=== PATIENT | male | born 1995 | race Caucasian/White ===

== ENCOUNTER 2021-06-28 10:25 | Emergency (ER) | payer BC ==
[2021-06-28] MEDS ORDERED: MAG HYDROX/AL HYDROX/SIMETH 30 ML UDC PO STA (10:59)
[2021-06-28] MEDS ORDERED: LIDOCAINE VISCOUS 2% 15 ML UDC MM STA (10:59)
[2021-06-28] MEDS ORDERED: SUCRALFATE 1 GM/10 ML UDC PO STA (10:59)
--- NOTE | 2021-06-28 11:03 | ED Physician Documentation ---
PD HPI ABD PAIN - Stated complaint Stated Complaint: ABD PX - Chief complaint Chief Complaint: Abd Pain - History obtained from History obtained from: Patient - History of Present Illness Timing - onset: Enter time (1000), Yesterday Timing - duration: Days (1) Timing - details: Abrupt onset, Still present Quality: Sharp, Pain Location: RUQ, Epigastric Improved by: Laying still Worsened by: Moving Associated symptoms: Nausea. No: Vomiting Similar symptoms before: Has not had sx before Recently seen: Not recently seen - Additional information Additional information: Previously well 25-year-old Felipe Bowser has developed epigastric pain beginning yesterday morning pain that he felt started in the right upper quadrant migrated to the epigastrium and is coming in waves. He reports a feeling of glass in his stomach. He has sharp periodic pains and feels that he has some improvement if he is laying still feels that if he does anything else the pain will be worse. He has had some nausea he has not had vomiting he was able to eat yesterday. He denies any use of alcohol or anti-inflammatories. Review of Systems Constitutional: denies: Fever Eyes: denies: Decreased vision Ears: denies: Ear pain Nose: denies: Congestion Throat: denies: Sore throat Cardiac: denies: Chest pain / pressure, Palpitations Respiratory: denies: Dyspnea, Cough GI: reports: Abdominal Pain, Nausea. denies: Vomiting, Constipation, Diarrhea : denies: Dysuria, Frequency Skin: denies: Rash Musculoskeletal: denies: Neck pain, Back pain, Extremity pain PD PAST MEDICAL HISTORY - Present Medications Home Medications: Ambulatory Orders Medication Instructions Recorded Confirmed Sucralfate [Carafate] 1 gm PO ACHS #60 tablet 06/28/21 - Allergies Allergies/Adverse Reactions: Allergies Allergy/AdvReac Type Severity Reaction Status Date / Time No Known Drug Allergies Allergy Verified 06/28/21 10:44 PD ED PE NORMAL - Vitals Vital signs reviewed: Yes - General General: Alert and oriented X 3, Well developed/nourished, Other (The patient will have episode of pain where he will become diaphoretic and in obvious distress.) - HEENT HEENT: Atraumatic, PERRL, EOMI - Neck Neck: Supple, no meningeal sign, No bony TTP - Cardiac Cardiac: RRR, No murmur - Respiratory Respiratory: No respiratory distress, Clear bilaterally - Abdomen Abdomen: Normal bowel sounds, Soft, Non tender, Non distended, No organomegaly - Back Back: No CVA TTP, No spinal TTP - Derm Derm: Normal color, Warm and dry, No rash - Extremities Extremities: No deformity, No edema - Neuro Neuro: Alert and oriented X 3, 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, No motor deficit, No sensory deficit, Normal speech Eye Opening: Spontaneous Motor: Obeys Commands Verbal: Oriented GCS Score: 15 - Psych Psych: Normal mood, Normal affect Results - Vitals Vitals: Vital Signs - 24 hr 06/28/21 06/28/21 10:40 11:10 Temperature 36.1 C L Heart Rate 85 72 Respiratory 20 12 Rate Blood Pressure 110/88 H 117/70 O2 Saturation 98 97 Oxygen O2 Source Room air - Labs Labs: Laboratory Tests 06/28/21 06/28/21 10:55 10:55 WBC 9.4 RBC 5.36 Hgb 15.3 Hct 46.3 MCV 86.4 MCH 28.5 MCHC 33.0 RDW 12.7 Plt Count 304 MPV 9.9 Neut # (Auto) 5.9 Lymph # (Auto) 2.7 Luce # (Auto) 0.7 Eos # (Auto) 0.1 Baso # (Auto) 0.0 Absolute Nucleated RBC 0.00 Nucleated RBC % 0.0 Sodium 139 Potassium 4.0 Chloride 104 Carbon Dioxide 24 Anion Gap 11.0 BUN 12 Creatinine 0.9 Estimated GFR (MDRD) 104 Glucose 112 H Calcium 9.4 Total Bilirubin 0.7 AST 34 ALT 67 H Alkaline Phosphatase 73 Total Protein 7.8 Albumin 4.5 Globulin 3.3 Albumin/Globulin Ratio 1.4 Lipase 36 - Rads (name of study) ab/pel w/o Radiology: Prelim report reviewed (Impression: No acute CT findings in the abdomen pelvis. Normal appendix. No evidence of appendicitis. No renal calculi, obstructive uropathy or hydronephrosis.), EMP read indepedently, See rad report Procedures - Bedside sono Bedside sono by EMP: With use of bedside ultrasound the right kidney is imaged it is sonographically nontender there is no obvious hydronephrosis. The gallbladder is grossly examined it is without gallbladder wall thickening there are no obvious stones and it is sonographically nontender. PD MEDICAL DECISION MAKING - ED course Complexity details: reviewed results, re-evaluated patient, considered differential, d/w patient, d/w family ED course: 25-year-old Felipe Bowser presents to the emergency department with a distressing sensation of glass in his stomach. He has prompt relief of this sensation with the use of viscous lidocaine and Mylanta and Carafate. He has lasting improvement. We have diagnosed him with gastritis after checking his blood counts electrolytes and a CT scan of the abdomen and pelvis. I discussed with the patient the empiric treatment associated with this including reducing acid and applying Carafate. I have asked the patient to follow-up should he have recurrence of his symptoms. Departure - Departure Disposition: Home, Self Care Clinical Impression: Gastritis Qualifiers: Gastritis type: unspecified gastritis Chronicity: acute Gastritis bleeding: without bleeding Qualified Code(s): K29.00 - Acute gastritis without bleeding Condition: Stable Instructions: ED PUD Vs Gastritis Follow-Up: [facility] [Provider Group] Prescriptions: Sucralfate [Carafate] 1 gm PO ACHS #60 tablet Comments: Felipe, today it looks like you have an acute gastritis or an inflammation to the stomach lining. The recommendation for this is to take a medication such as Pepcid AC or Nexium daily for the next 2 weeks. In addition of this I have E scribed some Carafate to the community pharmacy here in [place]. The expectation is that you will have improvement in your pain within hours of taking the medication to reduce the acid and this should be lasting. When you I have completed the course if you have a recurrence of your symptoms a follow-up with your primary care doctor is in order to establish contact with the surgeon or tug boat captain for a look inside of your stomach.
[2021-06-28 11:11] LABS: BASOPHILS % (AUTO) 0.2 %; EOSINOPHILS # (AUTO) 0.1 10^3/uL (0.0-0.7); EOSINOPHILS % (AUTO) 1.2 %; HCT - HEMATOCRIT 46.3 % (42.0-52.0); HGB - HEMOGLOBIN 15.3 g/dL (14.0-18.0); LYMPHOCYTES # (AUTO) 2.7 10^3/uL (1.5-3.5); LYMPHOCYTES % (AUTO) 28.7 %; MEAN CORPUSCULAR HEMOGLOBIN 28.5 pg (27.0-31.0); MEAN CORPUSCULAR VOLUME 86.4 fL (80.0-94.0); MEAN PLATELET VOLUME 9.9 fL (7.4-11.4); MONOCYTES # (AUTO) 0.7 10^3/uL (0.0-1.0); MONOCYTES % (AUTO) 7.4 %; NEUTROPHILS # (AUTO) 5.9 10^3/uL (1.5-6.6); NEUTROPHILS % (AUTO) 62.2 %; PLT - PLATELET COUNT 304 10^3/uL (130-450); RED BLOOD COUNT 5.36 10^6/uL (4.70-6.10); RED CELL DISTRIBUTION WIDTH 12.7 % (12.0-15.0); WHITE BLOOD COUNT 9.4 x10^3/uL (4.8-10.8)
[2021-06-28 11:13] VITALS: BP 117/70
[2021-06-28 11:23] LABS: ALBUMIN 4.5 g/dL (3.2-5.5); ALBUMIN/GLOBULIN RATIO 1.4 (1.0-2.2); BILIRUBIN,TOTAL 0.7 mg/dL (0.2-1.0); CALCIUM 9.4 mg/dL (8.5-10.3); CREATININE 0.9 mg/dL (0.6-1.2); TOTAL PROTEIN 7.8 g/dL (6.7-8.2)
--- NOTE | 2021-06-28 11:45 | CT Report ---
PROCEDURE: CT abdomen and pelvis without contrast INDICATIONS: R flank pain TECHNIQUE: Noncontrast 5 mm thick sections acquired from the diaphragms to the symphysis. 5 mm coronal and sagi ttal reformats were then performed. For radiation dose reduction, the following was used: automated exposure control, adjustment of mA and/or kV according to patient size. COMPARISON: None. FINDINGS: Image quality: Excellent. ABDOMEN: Lung bases: Lung bases are clear. Heart size is normal. Solid organs: Liver and spleen are normal in size. Gallbladder unremarkable Pancreas is normal in contours. No adrenal nodules. Kidneys are normal in size, without hydronephrosis or nephrolithiasis . Peritoneum and bowel: Unenhanced bowel loops demonstrate normal wall thickness and caliber. No free fluid or air. Normal appendix identified Nodes and vessels: No retroperitoneal or mesenteric adenopathy by size criteria. Aorta and inferior vena cava are normal in caliber. Miscellaneous: No ventral hernias. PELVIS: Genitourinary: Bladder wall thickness is normal. Miscellaneous: No inguinal hernias or adenopathy. Bones: No suspicious bony lesions. No vertebral body compression fractures. IMPRESSION: No acute CT findings in the abdomen and pelvis. Normal appendix. No evidence of appendicitis. No renal calculi, obstructive uropathy or hydronephrosis. Reviewed by: Shayne Garcia MD on 06/28/2021 10:43 AM EFFIE Approved by: Shayne Garcia MD on 06/28/2021 10:43 AM EFFIE Station ID: [id number]
== END 2021-06-28 11:59 | disposition home or self-care (01) ==
LOC: ED 10:25
DX: K29.00 Acute gastritis without bleeding (principal)
CPT/HCPCS: 36415; 74176; 80053; 83690; 85025; 99284; A9270